=== PATIENT | male | born 1960 ===

== ENCOUNTER 2023-01-22 05:25 | Day surgery (SDC) | payer OTHER ==
[~2023-01-22] VITALS: Ht 170.2 cm; Wt 94.3 kg
[~2023-01-22 05:25] MED LIST: COZAAR100 MG PO; FOSAMAX70 MG PO; GABAPENTIN100 MG; GLIMEPIRIDE1 M1 PO; ZOCOR40 MG PO
[2023-01-22] MEDS ORDERED: OXYC1TAB9 PO (10:04)
== END 2023-01-22 14:35 | disposition home or self-care (01) ==
LOC: CIR.AMB 05:25
PROVIDERS: ATTEND Surgery
DX: K64.2 Third degree hemorrhoids (principal); K62.89 Other specified diseases of anus and rectum; K62.5 Hemorrhage of anus and rectum; I10 Essential (primary) hypertension; Z20.822 Contact with and (suspected) exposure to COVID-19